=== PATIENT | male | born 1955 | race Caucasian/White ===

== ENCOUNTER 2019-10-28 12:15 | Emergency (ER) | payer MEDICARE, OTHER, SELFPAY ==
[2019-10-28 12:28] VITALS: BP 126/67; PULSE 112; RESP 20; TEMP 36.2; O2SAT 99
--- NOTE | 2019-10-28 12:32 | ED.UPPEXIN ---
HPI - Extremity Injury (Upper) General Stated Complaint: Fall Time Seen by Provider: 10/28/19 12:32 Source: patient and RN notes reviewed History of Present Illness HPI narrative: Patient is a 64-year-old male who presents the urgent care with complaints of right rib pain and mild pain to the right wrist. Patient states that he was talking to his dentist and not paying attention, stepped off a curb and fell onto his right side. Patient states that his right arm was tucked into his side when he fell. States that he is on Eliquis but denies of any hitting his head or loss of consciousness. Patient has full range of motion to right upper extremity without any deformity or fracture noted. Patient states that his discomfort has already felt much better since the incident approximately 1 hour prior to arrival. Patient has taken Tylenol. No other acute complaints. No acute distress noted. Patient read the plan of care. Related Data Home Medications Medication Instructions Recorded Confirmed acyclovir 400 mg PO DIRECTED 10/28/19 10/28/19 allopurinol 100 mg PO DIRECTED 10/28/19 10/28/19 apixaban [Eliquis] 5 mg PO DIRECTED 10/28/19 10/28/19 digoxin 0.125 mcg PO DIRECTED 10/28/19 10/28/19 doxycycline hyclate 100 mg PO DIRECTED 10/28/19 10/28/19 finasteride 5 mg PO DIRECTED 10/28/19 10/28/19 gabapentin 300 mg PO DIRECTED 10/28/19 10/28/19 ipratropium bromide 0.03 mcg INTRANASAL DIRECTED 10/28/19 10/28/19 metoprolol succinate 25 mg PO DIRECTED 10/28/19 10/28/19 midodrine 5 mg PO DIRECTED 10/28/19 10/28/19 potassium chloride 10 meq PO DAILY 10/28/19 10/28/19 prochlorperazine maleate 10 mg PO DIRECTED 10/28/19 10/28/19 rosuvastatin 5 mg PO DIRECTED 10/28/19 10/28/19 sertraline 50 mg PO DIRECTED 10/28/19 10/28/19 spironolactone 50 mg PO DIRECTED 10/28/19 10/28/19 temazepam 15 mg PO DIRECTED 10/28/19 10/28/19 torsemide 20 mg PO DIRECTED 10/28/19 10/28/19 zolpidem 5 mg PO DIRECTED 10/28/19 10/28/19 Allergies Allergy/AdvReac Type Severity Reaction Status Date / Time No Known Allergies Allergy Unverified 10/28/19 12:35 Review of Systems Review of Systems: Narrative: CONSTITUTIONAL: Denies fever, chills, or sweats. EYES: Denies visual changes, redness, or discharge. ENT: Denies rhinorrhea, congestion, sore throat, or otalgia. CARDIOVASCULAR: Denies chest pain, palpitations, or edema. RESPIRATORY: Denies cough or dyspnea. GASTROINTESTINAL: Denies abdominal pain, nausea, vomiting, or diarrhea. GENITOURINARY: Denies dysuria or hematuria. SKIN: Reports an abrasion to the right wrist MUSCULOSKELETAL: Reports of mild right rib pain NEUROLOGIC: Denies headache, numbness, or weakness. All other systems reviewed are negative, except as documented in HPI. PMFSH Comments At the time of my signature, I reviewed and agree with the nursing past medical, surgical, social, and family history. There is no relevant family history pertinent to the patient complaint. Exam Narrative: Exam Narrative: GENERAL: This is a well-nourished, well-developed patient, in no apparent distress. HEAD: normocephalic, atraumatic. EYES: PERRL. Sclera clear/white. Vision is grossly intact. EARS: External ears normal NOSE: External nose normal with no obvious nasal discharge, nares without redness, no rhinorrhea. THROAT: Mucous membranes moist NECK: Neck supple CARDIOVASCULAR: Controlled A. fib RESPIRATORY: Clear to auscultation. Breath sounds equal bilaterally. No wheezes, rales, or rhonchi. SKIN: 0.25 cm irregular abrasion noted to the dorsal aspect of the right wrist with bleeding controlled prior to arrival. Warm, intact with no suspicious lesions or rash, good texture and turgor. NEURO: awake, alert, and oriented to person, place and time. There were no obvious focal neurologic abnormalities. EXTREMITIES: No edema, ecchymosis or erythema noted to the lower extremities. No obvious deformity, edema, ecchymosis noted to the
== END 2019-10-28 12:45 | disposition home or self-care (01) ==
PROVIDERS: Emergency Provider Nurse Practitioner Family; PCP Internal Medicine Infectious Disease
DX: R07.81 Pleurodynia (principal); Z94.84 Stem cells transplant status
CPT/HCPCS: 99212; G0463